=== PATIENT | male | born 1935 | race Caucasian/White ===

== ENCOUNTER 2017-07-01 19:44 | Inpatient (IN) | payer MEDICAID, MEDICARE ==
[2017-07-01 20:33] LABS: % EOSINOPHILS 2.4 % (0.0-5.0); % LYMPHOCYTES 20.9 % (20.0-50.0); % NEUTROPHILS 63.7 % (40.0-80.0); BASOPHILE ABSOLUTE 0.1 Th/cumm (0-0.2); EOSINOPHILE ABSOLUTE 0.1 Th/cmm (0.1-0.4); HEMATOCRIT 35.2 % (41.0-60); HEMOGLOBIN 11.8 gm/dL (12-16); LYMPHOCYTE ABSOLUTE 1.2 Th/cmm (1.5-3.0); MEAN CORPUSCULAR HEMOGLOBIN 30.9 pg (27.0-31.0); MEAN CORPUSCULAR HGB CONC 33.5 pg (28.0-36.0); MEAN PLATELET VOLUME 9.4 fl; MONOCYTE ABSOLUTE 0.7 Th/cmm (0.3-1.0); NEUTROPHILE ABSOLUTE 3.8 Th/cmm (1.8-8.0); RED BLOOD COUNT 3.82 Mil/cmm (3.80-5.80); RED CELL DISTRIBUTION WIDTH 13.3 % (11.5-20.0); WHITE BLOOD COUNT 5.9 Th/cmm (4.8-10.8)
[2017-07-01 20:36] LABS: PLATELET COUNT 196 Th/cmm (150-400)
[2017-07-01 20:39] LABS: URINE MICROSCOPIC INDICATED? YES; URINE SOURCE RANDOM
[2017-07-01 20:41] LABS: URINE BILIRUBIN NEGATIVE (NEGATIVE); URINE BLOOD NEGATIVE (NEGATIVE); URINE GLUCOSE (UA) NEGATIVE (NEGATIVE); URINE KETONE NEGATIVE (NEGATIVE); URINE LEUKOCYTE ESTERASE NEGATIVE (NEGATIVE); URINE NITRATE NEGATIVE (NEGATIVE); URINE PH 6.5 (4.6 - 8.0); URINE PROTEIN NEGATIVE (NEGATIVE); URINE UROBILINOGEN 0.2 E.U./dL (0.2 - 1.0)
[2017-07-01 20:49] LABS: URINE CLARITY CLEAR (CLEAR); URINE COLOR YELLOW
[2017-07-01 20:50] LABS: URINE BACTERIA FEW /hpf (NONE SEEN); URINE EPITHELIAL CELLS RARE /lpf (FEW); URINE RBC 0-2 /hpf (0-5)
[2017-07-01 21:03] LABS: ALB/GLOB RATIO 1.5 (1.0-1.8); ALBUMIN 3.8 gm/dL (4.2-5.5); ALKALINE PHOSPHATASE 55 U/L (34-104); ANION GAP 9.3 (7.0-16.0); BILIRUBIN,TOTAL 0.2 mg/dL (0.3-1.0); BUN - UREA NITROGEN 24 mg/dL (7-25); CALCIUM SERUM 8.5 mg/dL (8.6-10.3); CARBON DIOXIDE 26.1 mEq/L (21.0-31.0); CHLORIDE 107 mEq/L (98-107); CREATININE - SERUM 0.9 mg/dL (0.7-1.3); GLUCOSE 88 mg/dL (70-105); POTASSIUM SERUM 3.4 mEq/L (3.5-5.1); SGOT 11 U/L (13-39); SGPT/ALT 6 U/L (7-52); SODIUM SERUM 139 mEq/L (136-145); TOTAL PROTEIN,SERUM 6.3 gm/dL (6.0-8.3)
--- NOTE | 2017-07-01 21:50 | ED Physician Chart ---
ED Chief Complaint/HPI - Patient Information Date Seen:: 07/01/17 Allergies:: Allergies Allergy/AdvReac Type Severity Reaction Status Date / Time bee venom (honey bee) Allergy Verified 07/01/17 19:59 haloperidol [From Haldol] Allergy Verified 07/01/17 19:59 spinach Allergy Verified 07/01/17 19:59 Vitals:: Vital Signs - 8 hr 07/01/17 20:00 Temp 98.3 F HR 51 RR 14 BP 154/70 O2 Sat % 99 Family Medical History - Family Member Mother History Unknown: Yes ED Labs/Radiology/EKG Results - Lab Results Results: Laboratory Tests 07/01/17 07/01/17 07/01/17 18:45 20:28 20:28 WBC 5.9 RBC 3.82 Hgb 11.8 L Hct 35.2 L MCV 92.0 MCH 30.9 MCHC Differential 33.5 RDW 13.3 Plt Count 196 D MPV 9.4 Neutrophils % 63.7 Lymphocytes % 20.9 Monocytes % 12.0 H Eosinophils % 2.4 Basophils % 1.0 Sodium 139 Potassium 3.4 L Chloride 107 Carbon Dioxide 26.1 Anion Gap 9.3 BUN 24 Creatinine 0.9 Est GFR ( Amer) TNP Est GFR (Non-Af Amer) TNP BUN/Creatinine Ratio 26.7 Glucose 88 Calcium 8.5 L Total Bilirubin 0.2 L AST 11 L ALT 6 L Alkaline Phosphatase 55 Total Protein 6.3 Albumin 3.8 L Globulin 2.5 Albumin/Globulin Ratio 1.5 TSH Urine Source RANDOM Urine Color YELLOW Urine Clarity CLEAR Urine pH 6.5 Ur Specific [place] <= 1.005 Urine Protein NEGATIVE Urine Glucose (UA) NEGATIVE Urine Ketones NEGATIVE Urine Blood NEGATIVE Urine Nitrate NEGATIVE Urine Bilirubin NEGATIVE Urine Urobilinogen 0.2 Ur Leukocyte Esterase NEGATIVE Urine RBC 0-2 H Urine WBC 2-5 H Ur Epithelial Cells RARE Urine Bacteria FEW 07/01/17 20:28 WBC RBC Hgb Hct MCV MCH MCHC Differential RDW Plt Count MPV Neutrophils % Lymphocytes % Monocytes % Eosinophils % Basophils % Sodium Potassium Chloride Carbon Dioxide Anion Gap BUN Creatinine Est GFR ( Amer) Est GFR (Non-Af Amer) BUN/Creatinine Ratio Glucose Calcium Total Bilirubin AST ALT Alkaline Phosphatase Total Protein Albumin Globulin Albumin/Globulin Ratio TSH 1.01 Urine Source Urine Color Urine Clarity Urine pH Ur Specific [place] Urine Protein Urine Glucose (UA) Urine Ketones Urine Blood Urine Nitrate Urine Bilirubin Urine Urobilinogen Ur Leukocyte Esterase Urine RBC Urine WBC Ur Epithelial Cells Urine Bacteria ED Septic Shock - <6hrs of presentation: Vital Signs: Vital Signs - 8 hr 07/01/17 20:00 Temp 98.3 F HR 51 RR 14 BP 154/70 O2 Sat % 99
[2017-07-01] MEDS: Sodium Chloride 0.9% 1,000 ML IV SCH (22:59)
[2017-07-02] MEDS ORDERED: Fleet Enema 135 mL RC PRN (06:41)
[2017-07-02] MEDS ORDERED: Mag Sulfate 2gm/50mL Premix 2 GM/50 ML BAG IV PRN (06:42)
[2017-07-02] MEDS ORDERED: Potassium Chloride 20 mEq ER Tab PO PRN (06:42)
[2017-07-02] MEDS ORDERED: Morphine Sulfate 2 mg/mL 1mL Syr IVP PRN (06:42)
--- NOTE | 2017-07-02 07:37 | History & Physical ---
ADMIT DATE: 07/01/2017 CHIEF COMPLAINT: Severe agitation. HISTORY OF PRESENT ILLNESS: The patient is an 81-year-old male who is a patient of mine at correction facility. At the nursing facility, he was found to have more agitation than usual. He was also more altered and had a significant decline as well. He has history of hypertension, dementia, and BPH. He was sent to the hospital for the acute decline. PAST MEDICAL HISTORY: Significant for hypertension, dementia, BPH. SOCIAL HISTORY: No documented history of recent alcohol, tobacco or drug abuse. FAMILY HISTORY: Noncontributory. ALLERGIES: Allergic to honey bees, HALDOL and spinach. Exact reaction is unknown. FAMILY HISTORY: Noncontributory. SURGICAL HISTORY: No recent major surgeries. MEDICATIONS: All medications reviewed and reconciled. REVIEW OF SYSTEMS: GENERAL: Positive recent fatigue, worsening confusion and overall decline. HEENT: No recent head trauma, change in vision, taste, hearing, or smell. Oral: No recent pain or discharge. NEUROLOGIC: No recent stroke or seizure. PSYCHIATRIC: Positive for recent change in behavior. He has been exhibiting more violent behavior and a little bit of psychosis as well. SKIN: No recent rashes. MUSCULOSKELETAL: Positive history of unsteady gait. EXTREMITIES: No recent edema. RESPIRATORY: No COPD or asthma. CARDIOVASCULAR: He has history of hypertension. PHYSICAL EXAMINATION: VITAL SIGNS: Temperature 98.2 degrees, heart rate is ___, respirations 18, blood pressure 143/67. Currently, no pain. GENERAL: No acute distress. He required Ativan at night as he was very agitated. HEENT: No acute issues. NECK: Trachea is midline. CARDIOVASCULAR: Regular rate and rhythm. PSYCHIATRIC: He has labile mood. ABDOMEN: Nontender, nondistended. SKIN: No rashes. NEUROLOGIC: Stable. MUSCULOSKELETAL: Decreased muscle strength in lower extremities. LABORATORY DATA: UA is essentially negative. White count is 5.9, hemoglobin is 11.8, platelet counts 196,000. Sodium 139, potassium 3.4, chloride 107, bicarbonate 26.1, BUN 24, calcium is 8.5, albumin is 3.8, globulin is 2.5. Chest x-ray is pending. ASSESSMENT: 1. Metabolic encephalopathy. 2. Dementia, Alzheimer's type with exacerbation. 3. Hypokalemia. 4. Moderate malnutrition. 5. Hypertension. 6. BPH. 7. Hypocalcemia. PLAN: The patient is on IV fluids. He required Ativan last night. Replenish the potassium. Follow up on chemistry panel. Continue blood pressure medications along with his dementia medications as well. He can benefit from psych evaluation. JOB# [id number]
--- NOTE | 2017-07-02 08:02 | Diagnostic Imaging Report ---
Portable chest x-ray Time: 2109 hours History: Shortness of breath Allowing for portable technique the heart size is normal. No focal pulmonary parenchymal processes. No hilar or mediastinal abnormalities. There is irregularity of right fifth and sixth rib might represent an old healed fracture. Impression: No acute abnormalities.
[2017-07-02] MEDS: Aspirin 81mg Chewable Tab PO SCH (09:21)
[2017-07-02 13:19] LABS: A1C % 6.7 % (4.0-6.0)
[2017-07-02] MEDS: Sodium Chloride 0.9% 1,000 ML IV SCH (16:35)
--- NOTE | 2017-07-03 00:01 | History & Physical ---
ADMIT DATE: 07/02/2017 CHIEF COMPLAINT: Agitation and adjusting psychotropic medication. HISTORY OF PRESENT ILLNESS: The patient has history of psychosis and dementia. The patient has been irritable and agitated. Dr. Petersen asked me to evaluate patient's condition. The patient has been anxious and has been taking multiple medications. He has been taking Aricept because of his memory problems. He is also taking Ativan on a p.r.n. basis. Currently, the patient seems to be slightly calm, but confused. PAST PSYCHIATRIC HISTORY: The patient has history of frequent bout of psychosis and Alzheimer's disease. PAST MEDICAL HISTORY: Noncontributory. SOCIAL HISTORY: The patient lives in a penitentiary. No known alcohol or street drug use. ALLERGIES: No known allergies. MENTAL STATUS EXAMINATION: The patient appears his stated age. Anxious. Irritable mood. Agitated. Thought processes are circumstantial with occasional flight of ideas. The patient did not answer question regarding hallucinations or delusions, but seems to be responding to stimuli. He denies any thoughts of suicide or homicide. The patient is alert and oriented to time, place, person, and situation. Impaired immediate, recent and remote memories. Poor insight and poor judgment. ASSESSMENT: PRIMARY DIAGNOSIS: Unspecified psychosis. SECONDARY DIAGNOSIS: Dementia, moderate to severe. TREATMENT PLAN: We will monitor his behavior and condition closely. Also, adjusting psychotropic medications. Thanks Dr. Petersen. We will follow with you. JOB# [id number]
[2017-07-03 07:00] LABS: % BASOPHILS 0.8 % (0.0-2.0); % EOSINOPHILS 2.7 % (0.0-5.0); % LYMPHOCYTES 26.8 % (20.0-50.0); % MONOCYTES 11.4 % (2.0-10.0); % NEUTROPHILS 58.3 % (40.0-80.0); EOSINOPHILE ABSOLUTE 0.1 Th/cmm (0.1-0.4); HEMATOCRIT 37.3 % (41.0-60); HEMOGLOBIN 12.7 gm/dL (12-16); LYMPHOCYTE ABSOLUTE 1.4 Th/cmm (1.5-3.0); MEAN CELL VOLUME 89.5 fl (80-99); MEAN CORPUSCULAR HEMOGLOBIN 30.5 pg (27.0-31.0); MEAN CORPUSCULAR HGB CONC 34.1 pg (28.0-36.0); MEAN PLATELET VOLUME 8.7 fl; MONOCYTE ABSOLUTE 0.6 Th/cmm (0.3-1.0); NEUTROPHILE ABSOLUTE 3.2 Th/cmm (1.8-8.0); PLATELET COUNT 171 Th/cmm (150-400); RED BLOOD COUNT 4.17 Mil/cmm (3.80-5.80); RED CELL DISTRIBUTION WIDTH 13.5 % (11.5-20.0); WHITE BLOOD COUNT 5.3 Th/cmm (4.8-10.8)
[2017-07-03 07:20] LABS: ANION GAP 9.5 (7.0-16.0); BUN - UREA NITROGEN 14 mg/dL (7-25); CALCIUM SERUM 8.8 mg/dL (8.6-10.3); CARBON DIOXIDE 25.1 mEq/L (21.0-31.0); CHLORIDE 104 mEq/L (98-107); CREATININE - SERUM 0.6 mg/dL (0.7-1.3); GLUCOSE 87 mg/dL (70-105); POTASSIUM SERUM 3.6 mEq/L (3.5-5.1); SODIUM SERUM 135 mEq/L (136-145)
--- NOTE | 2017-07-03 10:55 | General Progress Note ---
Subjective - Review of Systems Service Date: 07/03/17 Subjective: Pt seen and eval. Continues to have labile mood and episodes of psychosis. No n,v,d or cp. No falls or sz. No pain. Seen by Dr. Garrido. HgBA1C is 6.7 Objective - Results Result Diagrams: 07/03/17 06:54 07/03/17 06:54 Recent Labs: Laboratory Last Values WBC 5.3 Th/cmm (4.8-10.8) 07/03/17 06:54 RBC 4.17 Mil/cmm (3.80-5.80) 07/03/17 06:54 Hgb 12.7 gm/dL (12-16) 07/03/17 06:54 Hct 37.3 % (41.0-60) L 07/03/17 06:54 MCV 89.5 fl (80-99) 07/03/17 06:54 MCH 30.5 pg (27.0-31.0) 07/03/17 06:54 MCHC Differential 34.1 pg (28.0-36.0) 07/03/17 06:54 RDW 13.5 % (11.5-20.0) 07/03/17 06:54 Plt Count 171 Th/cmm (150-400) 07/03/17 06:54 MPV 8.7 fl 07/03/17 06:54 Neutrophils % 58.3 % (40.0-80.0) 07/03/17 06:54 Lymphocytes % 26.8 % (20.0-50.0) 07/03/17 06:54 Monocytes % 11.4 % (2.0-10.0) H 07/03/17 06:54 Eosinophils % 2.7 % (0.0-5.0) 07/03/17 06:54 Basophils % 0.8 % (0.0-2.0) 07/03/17 06:54 Sodium 135 mEq/L (136-145) L 07/03/17 06:54 Potassium 3.6 mEq/L (3.5-5.1) 07/03/17 06:54 Chloride 104 mEq/L (98-107) 07/03/17 06:54 Carbon Dioxide 25.1 mEq/L (21.0-31.0) 07/03/17 06:54 Anion Gap 9.5 (7.0-16.0) 07/03/17 06:54 BUN 14 mg/dL (7-25) 07/03/17 06:54 Creatinine 0.6 mg/dL (0.7-1.3) L 07/03/17 06:54 Est GFR ( Amer) TNP 07/03/17 06:54 Est GFR (Non-Af Amer) TNP 07/03/17 06:54 BUN/Creatinine Ratio 23.3 07/03/17 06:54 Glucose 87 mg/dL (70-105) 07/03/17 06:54 Hemoglobin A1c % 6.7 % (4.0-6.0) H 07/02/17 07:35 Calcium 8.8 mg/dL (8.6-10.3) 07/03/17 06:54 Magnesium 2.0 mg/dL (1.9-2.7) 07/02/17 07:35 Total Bilirubin 0.2 mg/dL (0.3-1.0) L 07/01/17 20:28 AST 11 U/L (13-39) L 07/01/17 20:28 ALT 6 U/L (7-52) L 07/01/17 20:28 Alkaline Phosphatase 55 U/L (34-104) 07/01/17 20:28 Total Protein 6.3 gm/dL (6.0-8.3) 07/01/17 20:28 Albumin 3.8 gm/dL (4.2-5.5) L 07/01/17 20:28 Globulin 2.5 gm/dL 07/01/17 20:28 Albumin/Globulin Ratio 1.5 (1.0-1.8) 07/01/17 20:28 TSH 1.01 uIU/ml (0.34-5.60) 07/01/17 20:28 Urine Source RANDOM 07/01/17 18:45 Urine Color YELLOW 07/01/17 18:45 Urine Clarity CLEAR (CLEAR) 07/01/17 18:45 Urine pH 6.5 (4.6 - 8.0) 07/01/17 18:45 Ur Specific [place] <= 1.005 (1.005-1.030) 07/01/17 18:45 Urine Protein NEGATIVE mg/dL (NEGATIVE) 07/01/17 18:45 Urine Glucose (UA) NEGATIVE mg/dL (NEGATIVE) 07/01/17 18:45 Urine Ketones NEGATIVE mg/dL (NEGATIVE) 07/01/17 18:45 Urine Blood NEGATIVE (NEGATIVE) 07/01/17 18:45 Urine Nitrate NEGATIVE (NEGATIVE) 07/01/17 18:45 Urine Bilirubin NEGATIVE (NEGATIVE) 07/01/17 18:45 Urine Urobilinogen 0.2 E.U./dL (0.2 - 1.0) 07/01/17 18:45 Ur Leukocyte Esterase NEGATIVE (NEGATIVE) 07/01/17 18:45 Urine RBC 0-2 /hpf (0-5) H 07/01/17 18:45 Urine WBC 2-5 /hpf (0-5) H 07/01/17 18:45 Ur Epithelial Cells RARE /lpf (FEW) 07/01/17 18:45 Urine Bacteria FEW /hpf (NONE SEEN) 07/01/17 18:45 - Physical Exam Vitals and I&O: Vital Signs Temp 97.2 F 07/03/17 05:35 Pulse 55 07/03/17 05:35 Resp 18 07/03/17 05:35 BP 163/89 07/03/17 05:35 Pulse Ox 96 07/03/17 05:35 Intake & Output 07/02/17 07/03/17 07/03/17 18:59 06:59 18:59 Intake Total 1814.333 240 Balance 1814.333 240 Weight (lbs) 65.771 kg 65.317 kg 65.771 kg Intake: Intake, IV Amount 1114.333 Sodium Chloride 0.9% 1, 1114.333 000 ml @ 70 mls/hr IV . [id number] [facility] Rx#:[id number] Oral 700 240 Other: # Voids 4 4 # Bowel Movements 2 4 Stool Characteristics Soft Brown Active Medications: Current Medications Acetaminophen (Tylenol) 650 mg PO Q6H PRN PRN Reason: Mild pain/headach/T above 100F Stop: 08/31/17 06:41 Amlodipine Besylate (Norvasc) 5 mg PO DAILY [facility] Stop: 08/31/17 08:59 Last Admin: 07/02/17 09:22 Dose: Not Given Aspirin (Aspirin Chewable) 81 mg PO DAILY [facility] Stop: 08/31/17 08:59 Last Admin: 07/02/17 09:21 Dose: 81 mg Benazepril HCl (Lotensin) 40 mg PO DAILY [facility] Stop: 08/31/17 08:59 Last Admin: 07/02/17 09:21 Dose: Not Given Clonazepam (Klonopin) 0.5 mg PO BID [facility] PRN Reason: Protocol Stop: 09/01/17 08:59 Donepezil HCl (Aricept) 10 mg PO HS [facility] Stop: 08/31/17 20:59 Last Admin: 07/02/17 21:07 Dose: 10 mg Finasteride (Proscar) 5 mg PO DAILY [facility] PRN Reason: Protocol Stop: 08/31/17 08:59 Last Admin: 07/02/17 09:22 Dose: 5 mg Gabapentin (Neurontin) 100 mg PO BID [facility] Stop: 08/31/17 08:59 Last Admin: 07/02/17 16:36 Dose: 100 mg Heparin Sodium (Porcine) (Heparin) 5,000 units SUBQ Q12HR [facility] Stop: 08/31/17 08:59 Last Admin: 07/02/17 21:06 Dose: 5,000 units Sodium Chloride (Nacl 0.9%) 1,000 mls @ 70 mls/hr IV .[id number] [facility] Stop: 08/30/17 22:03 Last Infusion: 07/02/17 18:13 Dose: 70 mls/hr Magnesium Sulfate (Magnesium Sulfate Premix) 2 gm in 50 mls @ 25 mls/hr IV DAILY PRN PRN Reason: Magnesium level less than 1.6 Stop: 08/31/17 06:41 Lorazepam (Ativan) 2 mg IVP Q4HR PRN; Protocol PRN Reason: Agitation Last Admin: 07/03/17 03:47 Dose: 2 mg Lorazepam (Ativan) 2 mg IVP Q4HR PRN; Protocol PRN Reason: Anxiety Stop: 08/31/17 06:41 Memantine (Namenda) 10 mg PO BID [facility] Stop: 08/31/17 08:59 Last Admin: 07/02/17 16:36 Dose: 10 mg Metoprolol Tartrate (Lopressor) 12.5 mg PO BID [facility] Stop: 08/31/17 08:59 Last Admin: 07/02/17 16:35 Dose: Not Given Morphine Sulfate (Morphine) 2 mg IVP Q4H PRN PRN Reason: moderate pain Stop: 08/31/17 06:41 Ondansetron HCl (Zofran) 4 mg IVP Q6H PRN PRN Reason: Nausea / Vomiting Stop: 08/31/17 06:41 Potassium Chloride (Klor-Con) 40 meq PO DAILY PRN PRN Reason: k level less than 3.5 Stop: 08/31/17 06:41 Last Admin: 07/02/17 09:22 Dose: 40 meq Quetiapine Fumarate (Seroquel) 50 mg PO TID ART PRN Reason: Protocol Stop: 09/01/17 08:59 Sodium Phosphate (Fleet Enema) 135 ml RC DAILY PRN PRN Reason: Constipation Stop: 08/31/17 06:40 Zolpidem Tartrate (Ambien) 10 mg PO HS PRN PRN Reason: Insomnia Stop: 08/31/17 06:41 Last Admin: 07/02/17 21:12 Dose: 10 mg General: No acute distress HEENT: Atraumatic, PERRLA Neck: Supple, no JVD Cardiovascular: Regular rate, Normal S1, Normal S2 Lungs: Clear to auscultation - Procedures Procedures: Procedures Procedure Code Date OTHER GROUP THERAPY 94.44 10/29/13 RECREATIONAL THERAPY 93.81 07/20/12 Assessment/Plan - Problem List Patient Problems: All Active Problems Bipolar affective disorder, currently manic, severe, with psychosis (Active) F31.2 Chronic obstructive lung disease (Active) J44.9 Dementia (Active) F03.90 History of - hypertension (Active) Z86.79 Mental health problem (Acute) F48.9 Psychosis NOS (Acute) - Assessment Assessment: Dm-OOC with A1C of 6.7 ME HAI with Exac Hypokalemia Mod [place] HTN BPH Hypocalcemia - Plan Plan: Started pt on fsbs and riss. Dr. Garrido saw pt. Fu on electrolytes. Continue Amlodipine for htn. Monitor for urinary retention as pt has BPH.
[2017-07-03] MEDS: Aspirin 81mg Chewable Tab PO SCH (10:58)
[2017-07-03] MEDS: Sodium Chloride 0.9% 1,000 ML IV SCH (11:11)
[2017-07-03] MEDS: INSULIN ASPART SLIDING SCALE 100 UNITS/ML UNIT SUBQ SCH ×3 (12:40→21:59)
--- NOTE | 2017-07-03 23:34 | Progress Notes ---
DATE: 07/03/2017 SUBJECTIVE: Chart reviewed and the patient interviewed. Also discussed the patient's condition with the staff and reviewed records and labs. The patient continued to be extremely agitated and he is still in irritable mood. The patient also did not sleep most of last night. The patient also pulled IV. He also is still restless and is still confused and unable to follow any of staff directions. The patient also is still easily agitated and is still in angry mood. Otherwise, the patient is trying to interact more. ASSESSMENT: The patient is still confused and agitated. TREATMENT AND PLAN: We will start Seroquel 50 mg 3 times a day and will hold if sedated. Also, we will continue to work on his agitation and irritability. We will monitor the patient for any possible of sedation. We will continue to monitor his behavior and his agitation and will continue to follow up. Also, we will add Klonopin in a dose of 0.5 twice a day and we will adjust the dose. [facility]# [id number]
[2017-07-04 06:21] LABS: % BASOPHILS 1.1 % (0.0-2.0); % EOSINOPHILS 3.6 % (0.0-5.0); % LYMPHOCYTES 30.9 % (20.0-50.0); % MONOCYTES 11.9 % (2.0-10.0); % NEUTROPHILS 52.5 % (40.0-80.0); BASOPHILE ABSOLUTE 0.1 Th/cumm (0-0.2); EOSINOPHILE ABSOLUTE 0.2 Th/cmm (0.1-0.4); HEMATOCRIT 38.3 % (41.0-60); HEMOGLOBIN 12.8 gm/dL (12-16); MEAN CELL VOLUME 90.9 fl (80-99); MEAN CORPUSCULAR HEMOGLOBIN 30.5 pg (27.0-31.0); MEAN CORPUSCULAR HGB CONC 33.5 pg (28.0-36.0); MEAN PLATELET VOLUME 9.7 fl; MONOCYTE ABSOLUTE 0.8 Th/cmm (0.3-1.0); NEUTROPHILE ABSOLUTE 3.3 Th/cmm (1.8-8.0); PLATELET COUNT 195 Th/cmm (150-400); RED BLOOD COUNT 4.21 Mil/cmm (3.80-5.80); RED CELL DISTRIBUTION WIDTH 13.4 % (11.5-20.0)
[2017-07-04 06:23] LABS: WHITE BLOOD COUNT 6.4 Th/cmm (4.8-10.8)
[2017-07-04 06:39] LABS: ANION GAP 7.3 (7.0-16.0); BUN - UREA NITROGEN 13 mg/dL (7-25); CALCIUM SERUM 8.9 mg/dL (8.6-10.3); CHLORIDE 106 mEq/L (98-107); CREATININE - SERUM 0.7 mg/dL (0.7-1.3); GLUCOSE 87 mg/dL (70-105); POTASSIUM SERUM 4.3 mEq/L (3.5-5.1); SODIUM SERUM 137 mEq/L (136-145)
[2017-07-04] MEDS: INSULIN ASPART SLIDING SCALE 100 UNITS/ML UNIT SUBQ SCH ×3 (07:04→17:32)
[2017-07-04] MEDS: Aspirin 81mg Chewable Tab PO SCH (08:11)
[2017-07-04] MEDS: Sodium Chloride 0.9% 1,000 ML IV SCH (11:36)
[2017-07-04] MEDS: OLANZapine 5 mg Oral Disintegrating Tab PO SCH ×2 (12:21→17:38)
--- NOTE | 2017-07-04 17:51 | Discharge Summary ---
DATE OF DISCHARGE: DISCHARGE DIAGNOSES: 1. Metabolic encephalopathy secondary to Alzheimer's dementia exacerbation. 2. Diabetes out of control, A1c 6.7. 3. Hypokalemia. 4. Hypertension. 5. Benign prostatic hypertrophy. 6. Hypocalcemia. 7. Vasomotor nephropathy. ADMITTING DIAGNOSES: 1. Metabolic encephalopathy secondary to Alzheimer's dementia exacerbation. 2. Hypokalemia. 3. Malnutrition. 4. Hypertension. 5. Benign prostatic hypertrophy. 6. Hypocalcemia. COMPLICATIONS: None. PROCEDURES: None. DIET: CCHO. VITAL SIGNS: Temperature 97 degrees, pulse 50, blood pressure 124/74, respiratory rate 18 and O2 sat 98. HISTORY OF PRESENT ILLNESS: An 81-year-old male who presented from [facility] with the acute complaint of increased encephalopathy secondary to Alzheimer's dementia exacerbation. The patient became very verbally and physically combative towards other medical staff. HOSPITAL COURSE: The patient was admitted to Med/Surg. Psych evaluated the patient and deemed that the patient met the requirement to be admitted to the [facility] for continued workup for his Alzheimer's dementia exacerbation. His home medications were continued at that time. The patient's vital signs as well as O2 sat remained within normal limits. Chest x-ray was negative. The patient will be discharged to [facility] with the diagnosis of metabolic encephalopathy secondary to Alzheimer's dementia exacerbation. ACTIVITY: Wheelchair. [facility]. The following physician will be Dr. Jose Cruz Coronado. JOB# [id number]
--- NOTE | 2017-07-07 11:08 | Discharge Summary ---
DATE OF DISCHARGE: DISCHARGE DIAGNOSES: 1. Metabolic encephalopathy secondary to Alzheimer dementia exacerbation. 2. Sepsis secondary to urinary tract infection and gastroenteritis. 3. Muscle spasms. 4. Glaucoma. 5. Benign prostatic hypertrophy. 6. Mild malnutrition. 7. Prerenal azotemia. 8. Vasomotor nephropathy. ADMITTING DIAGNOSES: 1. Metabolic encephalopathy secondary to Alzheimer dementia exacerbation. 2. Muscle spasms. 3. Glaucoma. 4. Leukocytosis. 5. Benign prostatic hypertrophy. 6. Mild malnutrition. 7. Prerenal azotemia. HISTORY OF PRESENT ILLNESS: An 83-year-old male, who presented from [facility] with complaint of nausea and vomiting for 1 day. The patient's also noted the patient was having increased confusion and was having difficulty recognizing her. The patient was admitted to med/surg. A urinalysis revealed a urinary tract infection. He was started on IV hydration as well as antibiotics to treat the underlying urinary tract infection. The patient also had acute gastroenteritis. The antibiotics were continued for that. Zofran was administered for the nausea and vomiting. The patient's mentation stabilized as white blood cell count decreased from 12 on admission to within normal limits. The patient was acting appropriately and was stable at that time. The patient will be discharged to [facility] for continued antibiotics as well as for physical therapy. PHYSICAL EXAMINATION: The patient's vitals are 97.8, 65, 101/48, 18, and 97% O2 saturation. DISPOSITION: To [facility]. CONDITION: Stable. FOLLOWUP: Follow up with Dr. Coronado upon arrival. COMPLICATIONS: None. PROCEDURES: None. [facility]# [id number]
== END 2017-07-04 18:56 | DRG 871 ==
LOC: ER 19:44 → MSI 20:00
PROVIDERS: ADMIT General Practice; ATTEND General Practice
DX: A41.9 Sepsis, unspecified organism (principal); N17.0 Acute kidney failure with tubular necrosis; G93.41 Metabolic encephalopathy; E44.0 Moderate protein-calorie malnutrition; F02.81 Dementia in other diseases classified elsewhere, unspecified severity, with behavioral disturbance; G30.9 Alzheimer's disease, unspecified; E83.51 Hypocalcemia; E11.65 Type 2 diabetes mellitus with hyperglycemia; E87.6 Hypokalemia; F29 Unspecified psychosis not due to a substance or known physiological condition; I10 Essential (primary) hypertension; N40.0 Benign prostatic hyperplasia without lower urinary tract symptoms; Z66 Do not resuscitate; Z91.030 Bee allergy status; Z88.8 Allergy status to other drugs, medicaments and biological substances; Z91.018 Allergy to other foods; Z68.22 Body mass index [BMI] 22.0-22.9, adult
CPT/HCPCS: 36415-UA; 71045-TC; 80048-TC; 80053-TC; 81001-TC; 82948-90; 83036-90; 83735-TC; 84443-TC; 85025-TC; 86592-TC; J1644; J1815; J2060; J7030; Z7610

== ENCOUNTER 2017-07-04 19:19 | Inpatient (IN) | payer MEDICARE ==
[2017-07-04 20:31] VITALS: BP 146/68
[2017-07-04] MEDS ORDERED: Fleet Enema 135 mL RC PRN (20:32)
[2017-07-04] MEDS ORDERED: Magnesium Hydroxide (MOM) 30 mL UDC PO PRN (20:32)
[2017-07-04] MEDS ORDERED: VALPROIC ACID PO SCH (21:00)
[2017-07-04] MEDS: Theophylline 80 mg/15 mL UDC PO SCH (21:00)
--- NOTE | 2017-07-04 21:16 | Progress Notes ---
DATE: PSYCHIATRIC PROGRESS NOTE SUBJECTIVE: Chart reviewed and the patient interviewed. Also discussed the patient's condition with the staff and reviewed records and labs. The patient continued to be extremely agitated and extremely irritable. The patient has been spitting food and the spitting medications. Also, has been increasingly agitated and in irritable mood. The patient also has been suspicious and has been angry. Otherwise, he is pulling IVs and he is unable to follow any of staff directions. ASSESSMENT: The patient is still psychotic and agitated. TREATMENT PLAN: We will discontinue Seroquel and we will start the patient on , hopefully for better compliance. Also, we will continue to monitor his behavior and his condition closely. Also, continue to work on his irritability and aggressive behavior and the patient might be transferred to Geropsych unit. JOB# [id number]
[2017-07-04] MEDS: INSULIN ASPART SLIDING SCALE 100 UNITS/ML UNIT SUBQ SCH (22:53)
[2017-07-05] MEDS: INSULIN ASPART SLIDING SCALE 100 UNITS/ML UNIT SUBQ SCH ×4 (06:53→21:10)
--- NOTE | 2017-07-05 08:35 | Psychosocial Evaluation ---
DATE OF SERVICE: 07/04/2017 PSYCHIATRIC INITIAL EVALUATION MENTAL STATUS EXAM AGE: 81. SEX: Male. PHYSICIAN: Evie Garrido MD, MPH CHIEF COMPLAINT: Agitation. HISTORY OF PRESENT ILLNESS: The patient is an 81-year-old male who was transferred from [facility]. The patient has been extremely agitated and in irritable mood in [facility]. The patient has sepsis and he has been pulling IVs and has been refusing to take his medications and has been in angry and in irritable mood. Although the patient has been taking Seroquel, but he is still in angry and irritable mood with uncooperative behavior. The patient was not been able to handle in the [facility] and transferred to the psych unit. The patient is still agitated and in irritable and angry mood with difficulty following directions. PAST PSYCHIATRIC HISTORY: The patient has a history of dementia and psychosis. The patient currently is on Seroquel and Klonopin. PAST MEDICAL HISTORY: The patient was admitted under Dr. Petersen for treatment of medical issues. SOCIAL HISTORY: The patient lives in senior care. No known alcohol or drug use. ALLERGIES: No known allergies. MENTAL STATUS EXAMINATION: The patient appears slightly older than his stated age. Agitated. Irritable mood. Thought processes are disorganized with poverty of speech. The patient did not answer questions regarding hallucinations or delusions, but he seems to be preoccupied. The patient did not answer questions regarding suicide or homicide. The patient is alert, but unable to assess his orientation at this time. Impaired immediate, recent, and remote memories, but also the patient was not able to give me any exact information about some of the things that they need for his evaluation of those items. Poor insight and poor judgment. ASSESSMENT: PRIMARY DIAGNOSIS: Unspecified psychosis. SECONDARY DIAGNOSIS: Dementia, [id number], with psychotic features. TREATMENT PLAN: We will monitor the patient's behavior closely. We will continue Seroquel and Klonopin, and we will adjust the dose. ESTIMATED LENGTH OF STAY: 5-7 days. THE PATIENT'S STRENGTHS AND WEAKNESSES: The patient's strength is not clear at this time. Weakness is his poor judgment and uncooperativeness. AFTER DISCHARGE PLAN: The patient will return to senior care and outpatient treatment and followup will continue as an outpatient. CRITERIA FOR DISCHARGE: Better impulse control and stabilize psychotropic medications and establish outpatient treatment plans. JOB# [id number]
[2017-07-05] MEDS ORDERED: VALPROIC ACID PO SCH (09:00)
[2017-07-05] MEDS ORDERED: PROTEIN HYDROLYS PO SCH (09:00)
[2017-07-05] MEDS ORDERED: AMINO ACIDS PO SCH (09:00)
[2017-07-05] MEDS: Ferrous Sulfate 325 MG TAB PO SCH ×2 (09:32→16:58)
[2017-07-05] MEDS: OLANZapine 5 mg Oral Disintegrating Tab PO SCH ×2 (09:32→16:58)
[2017-07-05] MEDS: Aspirin 81mg Chewable Tab PO SCH (09:32)
[2017-07-05] MEDS: Multivitamin w/ Minerals Tab PO SCH (09:32)
[2017-07-05] MEDS: Theophylline 80 mg/15 mL UDC PO SCH (09:35)
[2017-07-05] MEDS ORDERED: risperiDONE 1 mg/mL 30 mL Bottle PO SCH (21:00)
[2017-07-06] MEDS: INSULIN ASPART SLIDING SCALE 100 UNITS/ML UNIT SUBQ SCH ×4 (06:57→21:39)
[2017-07-06] MEDS: Theophylline 80 mg/15 mL UDC PO SCH ×3 (08:08→21:21)
[2017-07-06] MEDS: OLANZapine 5 mg Oral Disintegrating Tab PO SCH ×2 (08:10→16:36)
[2017-07-06] MEDS: Multivitamin w/ Minerals Tab PO SCH (08:10)
[2017-07-06] MEDS: Ferrous Sulfate 325 MG TAB PO SCH ×2 (08:10→16:37)
[2017-07-06] MEDS: Aspirin 81mg Chewable Tab PO SCH (08:10)
--- NOTE | 2017-07-06 09:44 | Progress Notes ---
DATE: SUBJECTIVE: Chart reviewed and the patient interviewed. I also discussed the patient's condition with the staff and reviewed records and labs. The patient is still confused. Also is still easily agitated and in angry and in irritable mood. The patient also is still suspicious and is still paranoid. Otherwise, the patient is compliant with taking medications with no side effects of medications. ASSESSMENT: The patient is still psychotic and agitated. TREATMENT PLAN: Continue to monitor his behavior and condition closely. Also, continue to monitor his medications and continue to follow up. JOB# [id number]
--- NOTE | 2017-07-06 23:04 | Progress Notes ---
DATE: SUBJECTIVE: Chart reviewed and the patient interviewed. Also discussed the patient's condition with the staff and reviewed records and labs. The patient seems to be calmer than before. The patient is less irritable and less agitated. He is still confused and still have disorganized thoughts, but states he seems to be less agitated and less irritable. The patient also is compliant with taking medicine and no side effects of Zyprexa. ASSESSMENT: The patient is less agitated and less psychotic. TREATMENT PLAN: We will continue monitoring his behavior and his condition closely. Also, continue to work on his irritability and his agitation and adjusting psychotropic medications. JOB# [id number]
[2017-07-07] MEDS: INSULIN ASPART SLIDING SCALE 100 UNITS/ML UNIT SUBQ SCH ×4 (06:40→21:00)
--- NOTE | 2017-07-07 11:07 | History & Physical ---
ADMIT DATE: CHIEF COMPLAINT: Alzheimer dementia exacerbation. HISTORY OF PRESENT ILLNESS: This is an 81-year-old male who presents from [facility] with the complaint of increased agitation and combativeness towards the staff. The patient was admitted to [facility] and was diagnosed with urinary tract infection and was given Rocephin. The patient was seen by Dr. Garrido and evaluated [facility]. Dr. Garrido stated the patient does meet requirements to be admitted to [facility] for the Geropsych sanchez and the patient was transferred last night. PAST MEDICAL HISTORY: Alzheimer dementia, muscle weakness, unsteady gait, osteoarthritis, hypertension. FAMILY HISTORY: Unremarkable. SOCIAL HISTORY: No drugs, alcohol or tobacco. Lives at [facility]. HOME MEDICATIONS: Reviewed and reconciled. REVIEW OF SYSTEMS: CONSTITUTIONAL: No sweats, fevers, chills. No eye pain, vision change or difficulty swallowing. RESPIRATORY: Denies cough, shortness of breath or wheezing. CARDIOVASCULAR: No chest pain, palpitations, shortness of breath. GASTROINTESTINAL: No abdominal pain, nausea or vomiting. GENITOURINARY: No dysuria, frequency or hematuria. MUSCULOSKELETAL: No neck pain, difficulty walking or falls. SKIN: Denies rashes, itching or wounds. NEUROLOGIC: Denies weakness, numbness, change in speech. PHYSICAL EXAMINATION: VITAL SIGNS: 97.7, 61, 20, 128/56, pulse ox 97%, weight 65 kg, BMI 22. HEENT: PERRLA, EOMI. NECK: Supple. Trachea midline. CARDIOVASCULAR: Regular rate and rhythm. RESPIRATORY: CTA bilaterally. No wheeze, rale or rhonchi. ABDOMEN: Soft, nontender, nondistended. Bowel sounds x 4. EXTREMITIES: Muscle strength testing in bilateral upper and lower extremities 4/5. SKIN: Diffuse ecchymosis over the bilateral arms. NEURO/PSYCH: AAO x 1. Disoriented and has difficulty communicating with staff because he has difficulty understanding what you are trying to tell him. ASSESSMENT AND PLAN: Metabolic encephalopathy secondary to Alzheimer dementia exacerbation, UTI, hypertension, dysphagia, muscle weakness, unsteady gait. [facility]. Amlodipine, benazepril, metoprolol for hypertension, Depakote for impulse control disorder along with Zyprexa, memantine and donepezil for Alzheimer dementia, clonazepam for agitation or anxiety. [facility]# [id number]
[2017-07-07] MEDS: OLANZapine 5 mg Oral Disintegrating Tab PO SCH ×2 (12:44→17:29)
[2017-07-07] MEDS: Aspirin 81mg Chewable Tab PO SCH (12:45)
[2017-07-07] MEDS: Multivitamin w/ Minerals Tab PO SCH (12:46)
[2017-07-07] MEDS: Ferrous Sulfate 325 MG TAB PO SCH ×2 (12:46→17:28)
[2017-07-07] MEDS: Theophylline 80 mg/15 mL UDC PO SCH ×2 (12:47→22:16)
[2017-07-08] MEDS: INSULIN ASPART SLIDING SCALE 100 UNITS/ML UNIT SUBQ SCH ×4 (06:34→20:46)
--- NOTE | 2017-07-08 06:50 | Progress Notes ---
DATE: 07/07/2017 SUBJECTIVE: Chart is reviewed. The patient interviewed. Also, discussed the patient's condition with the staff and reviewed records and labs. The patient is still confused. He is still restless and is still having episodes of aggression and irritability. He also still has difficulty following staff directions and gets agitated, especially when they help him with his ADLs. Otherwise, the patient is compliant with taking his medication and started to take his medications more regularly. ASSESSMENT: The patient is still psychotic. TREATMENT PLAN: Continue Zyprexa, Depakote, Aricept, and Namenda. We will get Depakote blood level and we will continue to follow up closely. JOB# [id number]
[2017-07-08] MEDS: Aspirin 81mg Chewable Tab PO SCH (13:16)
[2017-07-08] MEDS: Ferrous Sulfate 325 MG TAB PO SCH ×2 (13:17→18:27)
[2017-07-08] MEDS: OLANZapine 5 mg Oral Disintegrating Tab PO SCH ×2 (13:18→18:28)
[2017-07-08] MEDS: Theophylline 80 mg/15 mL UDC PO SCH ×2 (13:18→20:46)
[2017-07-08] MEDS: Multivitamin w/ Minerals Tab PO SCH (13:18)
--- NOTE | 2017-07-09 08:21 | Progress Notes ---
DATE: 07/08/2017 SUBJECTIVE: Chart reviewed and the patient interviewed. Also discussed the patient's condition with the staff and reviewed records and labs. The patient is still confused. Still actively responding to stimuli. The patient slept only about 4-5 hours according to staff. Also, is still easily agitated and confused. Also refused to take medications in spite of . When asked him about the reasons for refusing medications the patient has no specific answer and cannot give me any information. ASSESSMENT: The patient is still agitated and confused. TREATMENT PLAN: Continue to monitor his behavior and his condition closely. Also discussed with the patient taking his medications. Hopefully, will start to take it regularly. JOB# [id number]
[2017-07-09] MEDS: Theophylline 80 mg/15 mL UDC PO SCH ×2 (09:35→21:40)
[2017-07-09] MEDS: Multivitamin w/ Minerals Tab PO SCH (09:36)
[2017-07-09] MEDS: Ferrous Sulfate 325 MG TAB PO SCH ×2 (09:36→17:20)
[2017-07-09] MEDS: Aspirin 81mg Chewable Tab PO SCH (09:38)
[2017-07-09] MEDS: OLANZapine 5 mg Oral Disintegrating Tab PO SCH ×2 (09:40→17:21)
[2017-07-09] MEDS: INSULIN ASPART SLIDING SCALE 100 UNITS/ML UNIT SUBQ SCH ×4 (13:33→21:40)
[2017-07-09 16:00] LABS: % EOSINOPHILS 3.6 % (0.0-5.0); % LYMPHOCYTES 23.7 % (20.0-50.0); % MONOCYTES 12.5 % (2.0-10.0); % NEUTROPHILS 59.2 % (40.0-80.0); BASOPHILE ABSOLUTE 0.1 Th/cumm (0-0.2); EOSINOPHILE ABSOLUTE 0.2 Th/cmm (0.1-0.4); HEMATOCRIT 34.5 % (41.0-60); HEMOGLOBIN 11.7 gm/dL (12-16); LYMPHOCYTE ABSOLUTE 1.4 Th/cmm (1.5-3.0); MEAN CELL VOLUME 90.6 fl (80-99); MEAN CORPUSCULAR HEMOGLOBIN 30.7 pg (27.0-31.0); MEAN CORPUSCULAR HGB CONC 33.9 pg (28.0-36.0); MEAN PLATELET VOLUME 9.5 fl; MONOCYTE ABSOLUTE 0.7 Th/cmm (0.3-1.0); NEUTROPHILE ABSOLUTE 3.4 Th/cmm (1.8-8.0); PLATELET COUNT 197 Th/cmm (150-400); RED BLOOD COUNT 3.81 Mil/cmm (3.80-5.80); RED CELL DISTRIBUTION WIDTH 13.9 % (11.5-20.0); WHITE BLOOD COUNT 5.8 Th/cmm (4.8-10.8)
[2017-07-09 16:30] LABS: ALB/GLOB RATIO 1.4 (1.0-1.8); ALBUMIN 3.9 gm/dL (4.2-5.5); ALKALINE PHOSPHATASE 62 U/L (34-104); ANION GAP 11.6 (7.0-16.0); BILIRUBIN,TOTAL 0.3 mg/dL (0.3-1.0); BUN - UREA NITROGEN 35 mg/dL (7-25); CALCIUM SERUM 9.1 mg/dL (8.6-10.3); CHLORIDE 108 mEq/L (98-107); CHOLESTEROL 125 mg/dL (<200); GLUCOSE 125 mg/dL (70-105); HDL -HIGH DENSITY LIPOPROTEIN 48 mg/dL (23-92); POTASSIUM SERUM 3.6 mEq/L (3.5-5.1); SGOT 14 U/L (13-39); SGPT/ALT 9 U/L (7-52); SODIUM SERUM 141 mEq/L (136-145); TOTAL PROTEIN,SERUM 6.7 gm/dL (6.0-8.3); TRIGLYCERIDES 45 mg/dL (<150)
--- NOTE | 2017-07-10 02:10 | Progress Notes ---
DATE: 07/09/2017 SUBJECTIVE: Chart reviewed and the patient interviewed. Also, discussed the patient's condition with the staff and reviewed records and labs. The patient continued to be hyperverbal and continued to be agitated and confused. The patient also still has difficulty following any of staff directions. He also is still suspicious and paranoid. He also still has mood swings and he still easily agitated and irritable. Otherwise, the patient is compliant with taking his medications with no side effect of medications. ASSESSMENT: The patient is still confused and agitated. TREATMENT PLAN: We will continue to monitor his behavior and his condition closely. A Depakote blood level came back to be 55.3 that was done on 07/07/2017. We will continue same dose. Also, we will increase Klonopin to 1 mg twice a day and we will continue to work on his irritability and agitation and we will continue to follow up. [facility]# [id number]
[2017-07-10] MEDS: INSULIN ASPART SLIDING SCALE 100 UNITS/ML UNIT SUBQ SCH ×4 (06:50→21:42)
--- NOTE | 2017-07-10 08:52 | General Progress Note ---
Subjective - Review of Systems Service Date: 07/10/17 Subjective: Pt seen and eval. I was called by staff to evaluate for unsteady gait. No fevers or chills. No cough. Has labile mood. Has limited ROM in LE bl. No falls or sz. Objective - Results Result Diagrams: 07/09/17 15:40 07/09/17 15:40 Recent Labs: Laboratory Last Values WBC 5.8 Th/cmm (4.8-10.8) 07/09/17 15:40 RBC 3.81 Mil/cmm (3.80-5.80) 07/09/17 15:40 Hgb 11.7 gm/dL (12-16) L 07/09/17 15:40 Hct 34.5 % (41.0-60) L 07/09/17 15:40 MCV 90.6 fl (80-99) 07/09/17 15:40 MCH 30.7 pg (27.0-31.0) 07/09/17 15:40 MCHC Differential 33.9 pg (28.0-36.0) 07/09/17 15:40 RDW 13.9 % (11.5-20.0) 07/09/17 15:40 Plt Count 197 Th/cmm (150-400) 07/09/17 15:40 MPV 9.5 fl 07/09/17 15:40 Neutrophils % 59.2 % (40.0-80.0) 07/09/17 15:40 Lymphocytes % 23.7 % (20.0-50.0) 07/09/17 15:40 Monocytes % 12.5 % (2.0-10.0) H 07/09/17 15:40 Eosinophils % 3.6 % (0.0-5.0) 07/09/17 15:40 Basophils % 1.0 % (0.0-2.0) 07/09/17 15:40 Sodium 141 mEq/L (136-145) 07/09/17 15:40 Potassium 3.6 mEq/L (3.5-5.1) 07/09/17 15:40 Chloride 108 mEq/L (98-107) H 07/09/17 15:40 Carbon Dioxide 25.0 mEq/L (21.0-31.0) 07/09/17 15:40 Anion Gap 11.6 (7.0-16.0) 07/09/17 15:40 BUN 35 mg/dL (7-25) H 07/09/17 15:40 Creatinine 1.0 mg/dL (0.7-1.3) 07/09/17 15:40 Est GFR ( Amer) TNP 07/09/17 15:40 Est GFR (Non-Af Amer) TNP 07/09/17 15:40 BUN/Creatinine Ratio 35.0 07/09/17 15:40 Glucose 125 mg/dL (70-105) H 07/09/17 15:40 POC Glucose 102 MG/DL (70 - 105) 07/09/17 16:11 Calcium 9.1 mg/dL (8.6-10.3) 07/09/17 15:40 Total Bilirubin 0.3 mg/dL (0.3-1.0) 07/09/17 15:40 AST 14 U/L (13-39) 07/09/17 15:40 ALT 9 U/L (7-52) 07/09/17 15:40 Alkaline Phosphatase 62 U/L (34-104) 07/09/17 15:40 Total Protein 6.7 gm/dL (6.0-8.3) 07/09/17 15:40 Albumin 3.9 gm/dL (4.2-5.5) L 07/09/17 15:40 Globulin 2.8 gm/dL 07/09/17 15:40 Albumin/Globulin Ratio 1.4 (1.0-1.8) 07/09/17 15:40 Triglycerides 45 mg/dL (<150) 07/09/17 15:40 Cholesterol 125 mg/dL (<200) 07/09/17 15:40 LDL Cholesterol Direct 65 mg/dL (75-193) L 07/09/17 15:40 HDL Cholesterol 48 mg/dL (23-92) 07/09/17 15:40 TSH 1.29 uIU/ml (0.34-5.60) 07/09/17 15:40 Valproic Acid 55.3 ug/mL (50.0-100.0) 07/07/17 08:25 - Physical Exam Vitals and I&O: Vital Signs Temp 98.1 F 07/06/17 08:00 Pulse 67 07/09/17 17:21 Resp 20 07/06/17 08:00 BP 142/81 07/09/17 17:21 Pulse Ox 96 07/06/17 08:00 Intake & Output 07/09/17 07/10/17 07/10/17 18:59 06:59 18:59 Intake Total 1200 Balance 1200 Intake: Oral 1200 Other: # Bowel Movements 1 Active Medications: Current Medications Acetaminophen (Tylenol) 650 mg PO Q4HR PRN PRN Reason: Pain or Fever >101 Stop: 09/02/17 20:31 Amlodipine Besylate (Norvasc) 5 mg PO DAILY [facility] Stop: 09/03/17 08:59 Last Admin: 07/09/17 09:43 Dose: 5 mg Aspirin (Aspirin Chewable) 81 mg PO DAILY [facility] Stop: 09/03/17 08:59 Last Admin: 07/09/17 09:38 Dose: 81 mg Benazepril HCl (Lotensin) 40 mg PO DAILY [facility] Stop: 09/03/17 08:59 Last Admin: 07/09/17 09:38 Dose: 40 mg Bisacodyl (Dulcolax 10 Mg Supp) 10 mg RC DAILY PRN PRN Reason: Constipation Stop: 09/02/17 20:31 Clonazepam (Klonopin) 1 mg PO BID ART PRN Reason: Protocol Stop: 09/07/17 08:59 Last Admin: 07/09/17 17:20 Dose: 1 mg Docusate Sodium (Colace) 100 mg PO BID [facility] Stop: 09/03/17 08:59 Last Admin: 07/09/17 17:20 Dose: 100 mg Donepezil HCl (Aricept) 10 mg PO HS ART Stop: 09/02/17 20:59 Last Admin: 07/09/17 21:40 Dose: 10 mg Ergocalciferol (Vitamin D) 50,000 iu PO QMON ART Stop: 09/05/17 08:59 Last Admin: 07/07/17 12:46 Dose: 50,000 iu Ferrous Sulfate (Iron) 325 mg PO BID [facility] Stop: 09/03/17 08:59 Last Admin: 07/09/17 17:20 Dose: 325 mg Finasteride (Proscar) 5 mg PO DAILY ART PRN Reason: Protocol Stop: 09/03/17 08:59 Last Admin: 07/09/17 09:36 Dose: 5 mg Folic Acid (Folate) 1 mg PO HS [facility] Stop: 09/02/17 20:59 Last Admin: 07/09/17 21:40 Dose: 1 mg Gabapentin (Neurontin) 100 mg PO BID ART Stop: 09/03/17 08:59 Last Admin: 07/09/17 17:20 Dose: 100 mg Insulin Aspart (Novolog Insulin Sliding Scale) 0 units SUBQ ACHS ART PRN Reason: Protocol Stop: 09/02/17 20:59 Last Admin: 07/10/17 06:50 Dose: Not Given Lorazepam (Ativan) 0.5 mg PO Q4HR PRN; Protocol PRN Reason: Anxiety/Agitation Stop: 08/03/17 22:09 Last Admin: 07/09/17 01:42 Dose: 0.5 mg Magnesium Hydroxide (Milk Of Magnesia) 30 ml PO HS PRN PRN Reason: Constipation Stop: 09/02/17 20:31 Last Admin: 07/05/17 17:41 Dose: 30 ml Memantine (Namenda) 10 mg PO BID [facility] Stop: 09/03/17 08:59 Last Admin: 07/09/17 17:20 Dose: 10 mg Metoprolol Tartrate (Lopressor) 12.5 mg PO BID [facility] Stop: 09/03/17 08:59 Last Admin: 07/09/17 17:21 Dose: 12.5 mg Olanzapine (Zyprexa Zydis) 5 mg PO BID ART PRN Reason: Protocol Stop: 09/03/17 08:59 Last Admin: 07/09/17 17:21 Dose: 5 mg Sodium Phosphate (Fleet Enema) 135 ml RC DAILY PRN PRN Reason: Constipation Stop: 09/02/17 20:31 Theophylline (Hi-Dur) 300 mg PO Q12HR [facility] Stop: 09/02/17 20:59 Last Admin: 07/09/17 21:40 Dose: 300 mg Thiamine HCl (Vitamin B1) 100 mg PO BID [facility] Stop: 09/03/17 08:59 Last Admin: 07/09/17 17:22 Dose: 100 mg Valproate Sodium (Depakene) 250 mg PO DAILY [facility] Stop: 09/03/17 08:59 Last Admin: 07/09/17 09:35 Dose: 250 mg Valproate Sodium (Depakene) 500 mg PO HS [facility] Stop: 09/03/17 20:59 Last Admin: 07/09/17 21:40 Dose: 500 mg Zolpidem Tartrate (Ambien) 5 mg PO HS PRN PRN Reason: Insomnia Stop: 09/02/17 22:09 Last Admin: 07/08/17 22:43 Dose: 5 mg General: No acute distress HEENT: Atraumatic, PERRLA, EOMI Neck: Supple, no JVD, no Thyromegaly Cardiovascular: Regular rate, Normal S1, Normal S2 Lungs: Clear to auscultation Neurological: Other (has unsteady gait) - Procedures Procedures: Procedures Procedure Code Date OTHER GROUP THERAPY 94.44 10/29/13 RECREATIONAL THERAPY 93.81 07/20/12 Assessment/Plan - Problem List Patient Problems: All Active Problems Bipolar affective disorder, currently manic, severe, with psychosis (Active) F31.2 Chronic obstructive lung disease (Active) J44.9 Dementia (Active) F03.90 History of - hypertension (Active) Z86.79 Mental health problem (Acute) F48.9 Psychosis NOS (Acute) - Assessment Assessment: Unsteady gait - Plan Plan: Pt eval ordered. Staff believes he may need a wheelchair in anticipation of dc. Fall prec discussed as well. Nutritional Asmnt/Malnutr-PDOC - Dietary Evaluation Malnutrition Findings (Please click <Entered> for more info): Nutritional Asmnt/Malnutrition Start: 07/09/17 17: 41 Text: Status: Complete Freq: Document 07/09/17 17:41 LCHENG (Rec: 07/09/17 17:48 [id number]) Nutritional Asmnt/Malnutrition Patient General Information Nutritional Screening Moderate Risk Diagnosis psychosis Pertinent Medical Hx/Surgical Hx alzheimer dementia, muscle weakness, unsteady gait, OA, HTN Subjective Information Pt seen eating lunch in dining room, consumed 75% of lunch except green beans. Per notes, PO intake 100%. Current Diet Order/ Nutrition Support [facility] soft chopped, CCHO, SATYA Pertinent Medications colace, vitamin D, iron, folate, novolog, vitamin b1 Pertinent Labs 07/09 Na 141, K 3.6, Cl 108, BUN 35, Cr 1.0, Glucose 125, POC 94-102, Alb 3.9 Nutritional Hx/Data Height 1.7 m Height (Calculated Centimeters) 170.2 Current Weight (lbs) 64.41 kg Weight (Calculated Kilograms) 64.4 Weight (Calculated Grams) 10984.1 [place] Body Weight 148 % [place] Body Weight 96 Body Mass Index (BMI) 22.2 Weight Status Approriate GI Symptoms GI Symptoms None Last BM 07/05 Difficult in: None Skin Integrity/Comment: dryness, intact Current %PO Good (75-100%) Estimated Nutritional Goals BEE in Kcals: Using Current wt Calories/Kcals/Kg 25-30 Kcals Calculated 2227-2987 Protein: Using Current wt Protein g/k Protein Calculated 65 Fluid: ml 1625-1950ml (1ml/kcal) Nutritional Problem No current Nutrition Prob Problem N/A Malnutrition Alert Protein-Calorie Malnutrition N/A Is there a minimum of two criteria No selected? Query Text:Check all the applicable criteria. A minimum of two criteria are recommended for diagnosis of either severe or non-severe malnutrition. Intervention/Recommendation Comments 1. Continue with current diet as ordered. 2. Monitor PO intake, wt, labs and skin integrity 3. F/U as low risk in 7 days, 07/16 Expected Outcomes/Goals Expected Outcomes/Goals 1. PO intake to meet at least 75% of nutritional needs. 2. Wt stability, skin to remain intact, labs to approach WNL.
[2017-07-10] MEDS: Multivitamin w/ Minerals Tab PO SCH (09:02)
[2017-07-10] MEDS: Ferrous Sulfate 325 MG TAB PO SCH ×2 (09:02→18:14)
[2017-07-10] MEDS: OLANZapine 5 mg Oral Disintegrating Tab PO SCH ×2 (09:03→18:12)
[2017-07-10] MEDS: Aspirin 81mg Chewable Tab PO SCH (09:04)
[2017-07-10] MEDS: Theophylline 80 mg/15 mL UDC PO SCH ×2 (16:47→21:30)
[2017-07-11] MEDS: INSULIN ASPART SLIDING SCALE 100 UNITS/ML UNIT SUBQ SCH ×2 (06:36→11:56)
[2017-07-11] MEDS: Multivitamin w/ Minerals Tab PO SCH (09:27)
[2017-07-11] MEDS: Ferrous Sulfate 325 MG TAB PO SCH (09:27)
[2017-07-11] MEDS: OLANZapine 5 mg Oral Disintegrating Tab PO SCH (09:27)
[2017-07-11] MEDS: Aspirin 81mg Chewable Tab PO SCH (09:28)
[2017-07-11] MEDS: Theophylline 80 mg/15 mL UDC PO SCH (09:53)
--- NOTE | 2017-07-11 19:08 | Discharge Summary ---
DATE OF DISCHARGE: 07/11/2017 AGE: 81. SEX: Male. PHYSICIAN: Dr. Garrido. FINAL DIAGNOSIS/PRIMARY DIAGNOSIS: Unspecified psychosis. REASON FOR HOSPITALIZATION: The patient was admitted to the hospital from [place] because of increased agitation and irritability. The patient also was aggressive with the staff in [facility]. HOSPITAL COURSE: The patient continued to be anxious and in irritable mood. The patient also was suspicious and paranoid. The patient also was feeling hopeless and helpless. He also was having difficulty following directions. The patient was given Zyprexa and dose adjusted to 5 mg twice a day and also was given Depakote in a dose of 250 mg every day. Also, Namenda 10 mg twice a day. Gradually, the patient's affect was brighter. The patient was less agitated and less irritable. Also, Klonopin 1 mg twice a day that helped the patient to be less agitated. The patient was not suicidal or homicidal and the patient was returned to [facility]. Physical examination of the patient was basically within normal. EXPECTED OUTCOME AFTER DISCHARGE: Fair. JOB# [id number]
--- NOTE | 2017-07-15 02:54 | Progress Notes ---
DATE: SUBJECTIVE: Chart reviewed and the patient interviewed. Also discussed the patient's condition with the staff and reviewed records and labs. The patient continued to be confused and agitated. The patient also is still restless and is in irritable mood. The patient also is suspicious and is still paranoid. He also is interacting with suspicious and with paranoid, but at the same time, he is cooperative with his care. He continues to take his medications with no side effect of medications. ASSESSMENT: The patient is still psychotic and is still agitated and can be dangerous to others. TREATMENT PLAN: Continue to monitor his behavior and his condition closely. Also continue adjusting psychotropic medications. Also, we will get a Depakote blood level and will monitor the dose. [facility]# [id number]
== END 2017-07-11 14:00 | DRG 885 ==
LOC: GERO 19:19
PROVIDERS: ADMIT Psychiatry & Neurology Psychiatry; ATTEND Psychiatry & Neurology Psychiatry
DX: F29 Unspecified psychosis not due to a substance or known physiological condition (principal); G93.41 Metabolic encephalopathy; A41.9 Sepsis, unspecified organism; F02.81 Dementia in other diseases classified elsewhere, unspecified severity, with behavioral disturbance; N39.0 Urinary tract infection, site not specified; G30.9 Alzheimer's disease, unspecified; R13.10 Dysphagia, unspecified; Z66 Do not resuscitate; I10 Essential (primary) hypertension; R26.81 Unsteadiness on feet; M19.90 Unspecified osteoarthritis, unspecified site; M62.81 Muscle weakness (generalized)
CPT/HCPCS: 36415-UA; 80053-TC; 80061-TC; 80164-TC; 82948-90; 84443-TC; 85025-TC; 86592-TC; 93005; 97530; J1815; Z7610